=== PATIENT | female | born 1945 | race Caucasian/White ===

== ENCOUNTER 2024-09-21 10:13 | Emergency (ER) | payer MEDICARE, OTHER, SELFPAY ==
[2024-09-21 10:22] VITALS: BP 149/70
--- NOTE | 2024-09-21 11:25 | ED.GENMED ---
History of Present Illness
General
Chief Complaint: Abdominal Symptoms
Time Seen by Provider: 09/21/24 11:11
History of Present Illness
History of Present Illness:
The patient is a 78-year-old female with history of diabetes, hypertension presenting to the emergency department with abdominal pain, gastric pain, and nausea that started on Saturday. Patient states that the this morning she was nauseous and took a
Zofran which did improve symptoms. She has also noticed a decreased frequency of bowel movements, where she is usually very regular. There is no history of fever, recent antibiotic use, or abdominal surgery. The patient has not experienced similar
symptoms before. She describes the pain onset as approximately three days ago and denies vomiting, diarrhea, fever, recent illness exposure, heartburn, reflux, and any chest pain. She has been having decreased p.o. for the past few days. The
patient confirms no recent sickness nearby and no known issues with the pancreas.
Phy Exam
Physical Exam
Physical Exam:
GENERAL: in no acute distress
HEENT: normocephalic, extraocular movements intact, dry oral mucosa
NECK: normal inspection
RESPIRATORY: no respiratory distress, clear to auscultation bilaterally
CARDIOVASCULAR: regular rate and rhythm
ABDOMEN/: soft, non-distended, mild left lower quadrant tenderness, no rebound or guarding
EXTREMITIES: non-tender, no edema/swelling
NEUROLOGIC: awake and alert, moves all extremities
SKIN: warm
Course
Orders/Labs/Results
Orders:
Orders
09/21/24 10:26
ECG [Electrocardiogram (*1)] Urgent
Reason for Study: Abdominal Pain
Other Reason for Exam: epigastric
EKG- Treatment ONCE
09/21/24 11:25
CT Abd/pelvis W Iv Cont Urgent
Comment:
Reason For Exam: llq tender
0.9% Sodium Chloride 1000 ml [Nss] 1,000 ml IV BOLUS
09/21/24 11:27
Complete Blood Count/With Diff Urgent
Comprehensive Metabolic Panel Urgent
Direct Bilirubin Urgent
Comment: ADD ON
Lipase Urgent
09/21/24 11:29
Urinalysis Reflex To Culture Urgent
Date Specimen was Collected: 09/21/24
Time Specimen was Collected: 11:35
09/21/24 12:40
Add On- LAB Urgent
Tests Added?: direct billiruibin
Abnormal Lab Results
09/21/24
11:27
WBC 10.9 H 10^3/uL
(4.8-10.8)
MCH 31.4 H pg
(27.0-31.0)
Absolute Neuts (auto) 7.9 H 10^3/uL
(1.4-6.5)
Absolute Monos (auto) 0.7 H 10^3/uL
(0.1-0.6)
Lymphocytes % 20.0 L %
(20.5-51.1)
Glucose 144 H mg/dl
(70-99)
Total Bilirubin 1.6 H mg/dl
(0.2-1.3)
09/21/24 11:27
09/21/24 11:27
Vital Signs
Initial and Last Documented VS:
Initial Vital Signs
Temp Pulse Resp BP Pulse Ox
98.7 F 82 16 149/70 97
09/21/24 10:22 09/21/24 10:22 09/21/24 10:22 09/21/24 10:22 09/21/24 10:22
Last Documented Vital Signs
Temp Pulse Resp BP Pulse Ox
98.7 F 79 16 149/70 92
09/21/24 10:22 09/21/24 12:00 09/21/24 12:00 09/21/24 10:22 09/21/24 12:00
MDM/Problems Addressed
Differential Diagnosis Includes:
Patient is a 78-year-old woman presenting to the emergency department with abdominal pain nausea for the past 3 days. On arrival vitals unremarkable exam does show left lower quadrant tenderness palpation as well as a dry oral mucosa. Differential
is broad but consists of diverticulitis versus gastritis versus obstruction though less likely. Will check blood work EKG CT scan. Will give fluids. I did offer antiemetics and pain control the patient declined at this time
*Critical Care Note
Total Time (30-74mins, 75-104mins- exclusive of procedures): Not Applicable
Update Note
Update Note:
EKG per my interpretation normal sinus rhythm.
Labs unremarkable. CT scan with no acute finding. Patient given a copy of CT report for pulmonary nodules renal masses and fatty infiltration. She is tolerating p.o. Will discharge at this time. Patient does have Zofran at home.
ED Attending Note
-
Portions of this chart may have been created with voice recognition software.� Occasional wrong word or��sound alike� substitutions may have occurred due to the inherent limitations of voice recognition software.
Discharge Plan
Departure
Patient Disposition: Home (Routine Discharge)
Date of Disposition: 09/21/24
Time of Disposition: 15:07
Patient with high blood pressure during this ER visit?: No
Discharge Problem:
Abdominal pain, Nausea
Instructions: Abdominal pain in adults - ED discharge instructions, Nausea and vomiting in adults - ED discharge instructions
Referrals:
Yasmin Regan DO [Family Provider, [facility]]
Activity Restrictions/Additional Instructions:
You were seen in the Emergency Department today for epigastric pain and nausea. While you were here we performed blood work, which was reassuring. Please continue to stay well-hydrated and use Zofran as needed.
We would like for you to follow up with your primary care physician for further evaluation. If you experience fever, worsening of your symptoms, or develop any other new or concerning symptoms, please return to the Emergency Department immediately.
Please see the attached sheet for additional information.
When a patient comes into the Emergency Department, many diagnostic studies such as x-rays & CT Scans are completed to identify injuries. During these diagnostic studies, there are sometimes things like cysts, nodules, tumors, etc. that are
'incidentally found' and seen on these studies. No further workup was required during your hospitalization for your incidental findings, but please follow-up with your Primary Care Physician/Specialist regarding the below incidental findings. Your
Primary Care Physician/Specialist will instruct you/guide you through any further workup.
Your incidental findings:
1. There is fatty infiltration of the liver
2. 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
3. There are pulmonary nodules in the lung bases
Interventions
Interventions:
*General Assessment Last Done: 09/21/24 13:59
*Neglect/Abuse Screening Last Done: 09/21/24 13:59
*ED- Fall Risk Assessment Last Done: 09/21/24 13:59
HA-Nhdauk-Xmmksqpykk Assessment Last Done: 09/21/24 11:29
Discharge Date and Time
Print Language: [place]
[2024-09-21 11:32] VITALS: BMI 42.2
[2024-09-21] MEDS: NSS 1000 IV (11:33)
[2024-09-21 11:39] LABS: % Basophils 0.3 % (0-2); % Eosinophils 0.9 % (0-6); % Immature Granulocytes 0.2 % (0-0.5); % Monocytes 6.3 % (1.7-9.3); % Neutrophils 72.3 % (42.2-75.2); Absolute Eosinophils 0.1 10^3/uL (0-0.7); Absolute Lymphocytes 2.2 10^3/uL (1.2-3.4); Absolute Monocytes 0.7 10^3/uL (0.1-0.6); Absolute Neutrophils 7.9 10^3/uL (1.4-6.5); Hematocrit 40.7 % (37.0-47.0); Mean Corp Hgb Conc. 36.9 g/dL (33.0-37.0); Mean Corpuscular Hgb 31.4 pg (27.0-31.0); Mean Corpuscular Volume 85.3 fL (81.0-99.0); Mean Platelet Volume 10.1 fL (7.4-10.4); Nucleated Red Blood Cells % 0 %; Platelet Count 246 10^3/uL (130-400); Red Blood Cell Count 4.77 10^6/uL (4.20-5.40); Red Cell Dist. Width 12.3 % (11.5-14.5); White Blood Cell Count 10.9 10^3/uL (4.8-10.8)
[2024-09-21 12:05] LABS: ALT (SGPT) 30 U/L (0-35); AST (SGOT) 24 U/L (14-36); Albumin 4.5 g/dl (3.5-5.0); Alkaline Phosphatase 77 U/L (38-126); Blood Urea Nitrogen 13 mg/dl (7-17); Calcium 9.7 mg/dl (8.4-10.2); Carbon Dioxide 30 mmol/L (22-30); Chloride 101 mmol/L (98-107); Estimated Creatinine Clearance 82 ml/min; Glucose 144 mg/dl (70-99); Lipase 113 U/L (23-300); Sodium 139 mmol/L (135-145); Total Bilirubin 1.6 mg/dl (0.2-1.3); Total Protein 7.6 g/dl (6.3-8.2); eGFR > 60.00
[2024-09-21 13:13] LABS: Direct Bilirubin 0.1 mg/dl (0.0-0.4)
== END 2024-09-21 16:04 | disposition home or self-care (01) ==
LOC: EMR 10:13
PROVIDERS: EMERGENCY PHYSICIAN Student in an Organized Health Care Education/Training Program; FAMILY PHYSICIAN Family Medicine
DX: R11.0 Nausea (principal); R10.9 Unspecified abdominal pain; E11.9 Type 2 diabetes mellitus without complications; I10 Essential (primary) hypertension
CPT/HCPCS: 99285; 96360; 74177; 80053; 82248; 83690; 85025; 93005; Q9967